=== PATIENT | female | born 1980 | race Caucasian/White ===

== ENCOUNTER 2023-08-30 11:55 | Emergency (ER) | payer MEDICAID ==
[~2023-08-30] VITALS: Ht 175.3 cm; Wt 90.7 kg
[2023-08-30 12:09] VITALS: BP_SYST 142; PULSE 105; RESP 18; TEMP 98; O2SAT 98
[2023-08-30 13:00] LABS: BASOPHILS # (AUTO) 0.1 K/uL (0.0-0.2); BASOPHILS % (AUTO) 0.7 % (0.0-2.0); EOSINOPHILS # (AUTO) 0.1 K/uL (0.0-0.4); HEMOGLOBIN 11.8 g/dL (12.0-16.0); LYMPHOCYTES % (AUTO) 19.8 % (20.5-51.5); MEAN CORPUSCULAR HEMOGLOBIN 27 pg (27-31); MEAN CORPUSCULAR HGB CONC 35 % (32-36); MEAN CORPUSCULAR VOLUME 79 fL (79.0-98.0); MONOCYTES # (AUTO) 0.8 K/uL (0.0-1.0); MONOCYTES % (AUTO) 7.5 % (1.7-9.3); NEUTROPHILS # (AUTO) 7.1 K/uL (1.8-7.7); PLATELET COUNT (AUTO) 428 K/uL (130-430); RED BLOOD CELL COUNT(AUTO) 4.31 MIL/uL (4.2-6.2); RED CELL DISTRIBUTION WIDTH 16.7 % (9.0-15.0)
[2023-08-30 13:31] LABS: CALCIUM 8.9 mg/dL (8.4-11.0); CREATININE 0.85 mg/dL (0.55-1.30); POTASSIUM 3.7 mmol/L (3.5-5.1); URIC ACID 4.9 mg/dL (2.4-7.0)
[2023-08-30] MEDS ORDERED: METH-776 PO (13:41)
[2023-08-30] MEDS ORDERED: NABU-140 PO (13:41)
[2023-08-30 13:59] VITALS: BP_SYST 139; PULSE 89; RESP 18; TEMP 98.1; O2SAT 98
== END 2023-08-30 13:50 | disposition home or self-care (01) ==
LOC: SED 11:55
DX: M25.561 Pain in right knee (principal)
CPT/HCPCS: 36415; 73560; 80048; 84550; 85025; 99284